=== PATIENT | female | born 1965 | race African-American/Black ===

== ENCOUNTER 2016-12-24 03:08 | Emergency (ER) | payer OTHER ==
[~2016-12-24] VITALS: Ht 160 cm; Wt 72.1 kg
[2016-12-24 03:14] VITALS: BP 165/90
[2016-12-24] MEDS ORDERED: IBUP200T77 PO (03:29)
[2016-12-24] MEDS ORDERED: ACETAMINOPHEN 325 MG TABLET. PO ONE (03:30)
--- NOTE | 2016-12-24 03:30 | PHYS DOC ---
Past Medical History Past Medical History: Hypertension Past Surgical History: Cholecystectomy, Hysterectomy, Other Additional Past Surgical Histo: hernia repair Alcohol Use: None Drug Use: None Adult General Chief Complaint Chief Complaint: HEADACHE HPI HPI 51-year-old female presenting to the emergency Department today with headache. Her headache is moderate nonradiating. She reports placing cream on her forehead which mildly improved her symptoms. She denies nausea vomiting. She denies it being a thunderclap headache. She denies vision changes. She reports headache similar previous. Review of systems is negative for unilateral numbness weakness tingling. Negative for nausea vomiting or vision changes. All other review of systems is negative. Review of Systems Review of Systems see above Current Medications Current Medications Current Medications Medications (Trade) Dose Ordered Sig/Delfino Start Time Stop Time Status Last Admin Dose Admin Acetaminophen (Tylenol) 650 mg 1X ONCE 12/24/16 03:30 12/24/16 03:46 DC 12/24/16 03:40 650 MG Allergies Allergies Allergies Coded Allergies Type Severity Reaction Last Updated Verified Iodinated Contrast Media - Oral and Allergy Unknown hives and "my throat closed up" 12/24/16 Yes acetaminophen Allergy Unknown hives. 12/24/16 Yes hydrocodone Allergy Unknown hives. 12/24/16 Yes ibuprofen Allergy Unknown hives 12/24/16 Yes Physical Exam Physical Exam Constitutional: Well developed, well nourished, no acute distress, non-toxic appearance. [] HENT: Normocephalic, atraumatic, bilateral external ears normal, oropharynx moist, no oral exudates, nose normal. [] Eyes: PERRLA, EOMI, conjunctiva normal, no discharge. [] Neck: Normal range of motion, no tenderness, supple, no stridor. [] Cardiovascular:Heart rate regular rhythm, no murmur [] Lungs & Thorax: Bilateral breath sounds clear to auscultation [] Abdomen: Bowel sounds normal, soft, no tenderness, no masses, no pulsatile masses. [] Skin: Warm, dry, no erythema, no rash. [] Back: No tenderness, no CVA tenderness. [] Extremities: No tenderness, no cyanosis, no clubbing, ROM intact, no edema. [] Neurologic: Alert and oriented X 3, normal motor function, normal sensory function, no focal deficits noted. 5/5 strength in all extremities. No focal neurologic deficits present. Psychologic: Affect normal, judgement normal, mood normal. [] Current Patient Data Vital Signs Vital Signs Date Time Temp Pulse Resp B/P Pulse Ox O2 Delivery O2 Flow Rate FiO2 12/24/16 03:14 98.5 73 20 95 Room Air 98.5 EKG EKG [] Radiology/Procedures Radiology/Procedures [] Course & Med Decision Making Course & Med Decision Making Pertinent Labs and Imaging studies reviewed. (See chart for details) []51-year-old female presenting with a headache similar to previous.vital signs showed mild hypertension. Otherwise afebrile. Patient treated with Reglan Benadryl along with fluids which improved her symptoms. She was subsequent discharged home to follow up with her PCP in 2 to 3 days. Dragon Disclaimer Dragon Disclaimer This electronic medical record was generated, in whole or in part, using a voice recognition dictation system. Departure Departure Impression: Primary Impression: Headache Disposition: HOME, SELF-CARE Condition: STABLE Referrals: LAUREN KENNEDY MD Patient Instructions: Headache, FAQs Additional Instructions: Thank you for allowing us to participate in your care today. Followup with your primary care physician in 3 days if your symptoms do not improve. If you do not have a primary care provider you can ask for a list of our primary care providers. Return to the emergency department you have any new or concerning findings. This should be evaluated by the primary care physician and any necessary consulting services for continued management within a few days after discharge. Return to emergency room if you have any new or concerning symptoms including but not limited to fever, chills, nausea, vomiting, intractable pain, any new rashes, chest pain, shortness of air, uncontrolled bleeding, difficulty breathing, and/or vision loss. Scripts Ibuprofen 200 Mg [id number] Mg PO PRN Q6HRS PRN INFLAMMATION #15 TAB Prov:FRANCINE HAWK MD 12/24/16 FRANCINE HAWK MD Dec 24, 2016 03:30
== END 2016-12-24 03:51 | disposition home or self-care (01) ==
LOC: ER 03:08
DX: R51 Headache (principal); Z90.49 Acquired absence of other specified parts of digestive tract; Z90.710 Acquired absence of both cervix and uterus; Z88.5 Allergy status to narcotic agent; Z88.8 Allergy status to other drugs, medicaments and biological substances; Z91.041 Radiographic dye allergy status
CPT/HCPCS: 99282